=== PATIENT | male | born 1960 | race Two or more races ===

== ENCOUNTER 2016-11-19 22:28 | Inpatient (IN) | payer MEDICAID, OTHER ==
[~2016-11-19] VITALS: Ht 167.6 cm; Wt 94.8 kg
[2016-11-19 22:34] VITALS: BP 131/60
[2016-11-19] MEDS ORDERED: DITROPAN10 MG ORAL (22:40)
[2016-11-19] MEDS ORDERED: METFORMIN HCL500 M4 ORAL (22:40)
[2016-11-19] MEDS ORDERED: RISPERDAL0.25 MG ORAL (22:40)
[2016-11-19] MEDS ORDERED: Haloperidol 5mg/ml Inj IM ONE (23:00)
[2016-11-19] MEDS ORDERED: LORazepam Inj 2mg/ml 1ml IM ONE (23:00)
[2016-11-19 23:01] VITALS: BP 131/60
[2016-11-19 23:16] VITALS: BP 128/62
[2016-11-19 23:31] VITALS: BP 130/68
[2016-11-19 23:46] VITALS: BP 135/78
[2016-11-20] VITALS (14 sets, daily range): BP systolic 121–141; BP diastolic 68–93
--- NOTE | 2016-11-20 00:46 | Emergency Room Report ---
History of Present Illness General Chief Complaint: Behavioral Complaint Source: Family Member, EMS (Farhan Carvajal) Present Illness HPI Patient is a 48-year-old male presented after having increased agitation. Patient was noted to be off of his psychiatric medication for several days. Patient had been previously taking Risperdal. Patient had not been recently hospitalized. The patient was noted to have the also prior history of urinary disease and had been taking oxybutynin. Patient had been noted to be agitated and had been more violent toward family members. (Farhan Carvajal) Allergies: Coded Allergies: No Known Allergies (Unverified , 11/19/16) Patient History Past Medical History: see triage record Reviewed Nursing Documentation: PMH: Agreed, PSxH: Agreed (Farhan Carvajal) Nursing Documentation-PMH Hx Diabetes: Yes History Of Psychiatric Problem: Yes (Farhan Carvajal) Review of Systems All Other Systems: limited - by agitation and poor cooperation (Farhan Carvajal) Physical Exam Vital Signs Date Time Temp Pulse Resp B/P Pulse Ox O2 Delivery O2 Flow Rate FiO2 11/19/16 22:24 Room Air 11/19/16 22:34 98.2 120 24 131/60 95 Sp02 EP Interpretation: reviewed, normal General Appearance: alert/responsive, no apparent distress, GCS 15, non-toxic Head: atraumatic Eyes: PERRL, lids + conjunctiva normal ENT: hearing intact, no angioedema Neck: supple/symm/no masses, no meningismus Respiratory: effort normal, no wheezing, chest symmetrical Cardiovascular: regular rate, rhythm, no edema Cardiovascular #2: 2+ carotid (R), 2+ carotid (L), 2+ dorsalis pedis (R), 2+ dorsalis pedis (L) Gastrointestinal: non-tender, no mass, non-distended, no rebound/guarding, normal bowel sounds Musculoskeletal: strength & tone normal, non-tender, other - limited ROM, nonambulatory per family Neurologic: sensory intact Psychiatric: anxious, other - agitated Skin: no rash, well hydrated Lymphatic: normal inspection (Farhan Carvajal) Medical Decision Making Diagnostic Impression: Primary Impression: Psychosis Additional Impressions: Cerebral palsy Sinusitis, acute maxillary ER Course Patient presented for psychosis. Differential diagnoses include substance abuse , psychosis, bipolar disorder, depression, malingering Because of complexity of patient's case laboratory testing and imaging studies were ordered. The patient was placed in leather restraints for markedly agitation he is noted be kicking at staff. Patient was given a sedative medications. The patient was noted to have improvement in agitation after medications. Patient was given IV Rocephin for sinusitis.Patient is medically cleared for psychiatric referral. Laboratory Tests Test 11/20/16 01:22 White Blood Count 13.6 K/UL (4.8-10.8) H Red Blood Count 5.11 M/UL (4.70-6.10) Hemoglobin 15.5 G/DL (14.2-18.0) Hematocrit 45.3 % (42.0-52.0) Mean Corpuscular Volume 89 FL (80-99) Mean Corpuscular Hemoglobin 30.4 PG (27.0-31.0) Mean Corpuscular Hemoglobin Concent 34.3 G/DL (32.0-36.0) Red Cell Distribution Width 12.4 % (11.6-14.8) Platelet Count 353 K/UL (150-450) Mean Platelet Volume 6.8 FL (6.5-10.1) Neutrophils (%) (Auto) 80.7 % (45.0-75.0) H Lymphocytes (%) (Auto) 11.5 % (20.0-45.0) L Monocytes (%) (Auto) 6.8 % (1.0-10.0) Eosinophils (%) (Auto) 0.3 % (0.0-3.0) Basophils (%) (Auto) 0.7 % (0.0-2.0) Sodium Level 138 mEQ/L (135-145) Potassium Level 4.0 mEQ/L (3.4-4.9) Chloride Level 98 mEQ/L (98-107) Carbon Dioxide Level 24 mEQ/L (20-30) Anion Gap 16 (5-15) H Blood Urea Nitrogen 17 mg/dL (7-23) Creatinine 1.0 mg/dL (0.7-1.2) Estimate Glomerular Filtration Rate > 60 mL/min (>60) Glucose Level 112 mg/dL (74-106) H Calcium Level 9.0 mg/dL (8.6-10.2) Total Bilirubin 0.3 mg/dL (0.0-1.2) Aspartate Amino Transferase (AST) 24 U/L (5-40) Alanine Aminotransferase (ALT) 34 U/L (3-41) Alkaline Phosphatase 65 U/L (40-129) Total Protein 7.3 g/dL (6.6-8.7) Albumin 4.1 g/dL (3.5-5.2) Globulin 3.2 g/dL Albumin/Globulin Ratio 1.2 (1.0-2.7) Salicylates Level < 1 mg/dL (10-30) L Urine Opiates Screen Negative (NEGATIVE) Acetaminophen Level < 10 ug/mL (10-30) L Urine Barbiturates Screen Negative (NEGATIVE) Phencyclidine (PCP) Screen Negative (NEGATIVE) Urine Amphetamines Screen Negative (NEGATIVE) Urine Benzodiazepines Screen Negative (NEGATIVE) Urine Cocaine Screen Negative (NEGATIVE) Urine Marijuana (THC) Screen Negative (NEGATIVE) Serum Alcohol < 10 mg/dL (Farhan Carvajal) ER Course Patient with medical problems and we are unable to place. Dr. Combs would not accept the patient. Admit med with sitter Dr. Huerta. (Mc Alicea M.D.) ER Course Received signout from Dr Carvajal at 630am Patient required additional sedation in morning - was repeatedly screaming and attacking staff We tried throughout the day to place patient in psychiatric facility but I was told by cupola charger Angela that all places refused patient because of patient's cerebral palsy We also tried to admit patient for failure to thrive - [facility] requested transfer to [facility]. I spoke to Dr Auguste who also refused patient because of underlying psych issues. At this point because we were unable to place in Psych facility and unable to admit/transfer to [place] community per his insurance, we decided to admit patient here. I endorsed to Dr Alicea at 3pm to followup admission to Hospitalist here. (BREA DUNLAP M.D.) Last Vital Signs Date Time Temp Pulse Resp B/P Pulse Ox O2 Delivery O2 Flow Rate FiO2 11/19/16 23:01 120 24 95 Room Air 11/19/16 22:34 98.2 131/60 Status: unchanged (Farhan Carvajal) Last Vital Signs Date Time Temp Pulse Resp B/P Pulse Ox O2 Delivery O2 Flow Rate FiO2 11/20/16 18:46 98.0 102 18 129/81 99 Room Air Status: improved (Mc Alicea M.D.) Disposition: ADMITTED INPATIENT Condition: Serious Farhan Carvajal Nov 20, 2016 00:46 Mc Alicea M.D. Nov 20, 2016 19:18 BREA DUNLAP M.D. Nov 21, 2016 06:39
[2016-11-20] MEDS ORDERED: DiphenhydrAMINE 50mg/ml Inj IM ONE ×3 (01:00→18:45)
[2016-11-20 01:33] LABS: BASOPHILS % (AUTO) 0.7 % (0.0-2.0); EOSINOPHILS % (AUTO) 0.3 % (0.0-3.0); LYMPHOCYTES % (AUTO) 11.5 % (20.0-45.0); MEAN CORPUSCULAR HEMOGLOBIN 30.4 PG (27.0-31.0); MEAN CORPUSCULAR HGB CONC 34.3 G/DL (32.0-36.0); MEAN CORPUSCULAR VOLUME 89 FL (80-99); MEAN PLATELET VOLUME 6.8 FL (6.5-10.1); MONOCYTES % (AUTO) 6.8 % (1.0-10.0); NEUTROPHILS % (AUTO) 80.7 % (45.0-75.0); PLATELET COUNT 353 K/UL (150-450); RED BLOOD COUNT 5.11 M/UL (4.70-6.10); RED CELL DISTRIBUTION WIDTH 12.4 % (11.6-14.8); WHITE BLOOD COUNT 13.6 K/UL (4.8-10.8)
[2016-11-20 01:49] LABS: ACETAMINOPHEN < 10 ug/mL (10-30); ALANINE AMINOTRANSFERASE 34 U/L (3-41); ALBUMIN/GLOBULIN RATIO 1.2 (1.0-2.7); ALCOHOL < 10 mg/dL; ANION GAP 16 (5-15); ASPARTATE AMINO TRANSFERASE 24 U/L (5-40); CARBON DIOXIDE 24 mEQ/L (20-30); CHLORIDE 98 mEQ/L (98-107); GLOMERULAR FILTRATION RATE > 60 mL/min (>60); HEMOLYSIS 14; SODIUM 138 mEQ/L (135-145); TOTAL PROTEIN 7.3 g/dL (6.6-8.7)
[2016-11-20] MEDS ORDERED: cefTRIAXone 2 GM in NS 110 ML IVPB ONE (02:30)
[2016-11-20] MEDS ORDERED: Haloperidol 5mg/ml Inj IM ONE ×2 (08:15→16:45)
[2016-11-20] MEDS ORDERED: LORazepam Inj 2mg/ml 1ml IM ONE ×3 (08:15→18:45)
--- NOTE | 2016-11-20 09:27 | Diagnostic Imaging Report ---
Indication: Abdominal pain Technique: Continuous helical transaxial imaging of the abdomen and pelvis was obtained from the lung bases to the pubic symphysis. No intravenous contrast was administered. Coronal 2-D reformats were also obtained. Total Dose length Product (DLP): [address] Dose Index Volume (CTDIvol): 20 mGy Comparison: none Findings: There is artifact based on the presence of the patient's arm over the right side of abdomen. This was unavoidable. There is no nephrolithiasis or hydronephrosis. Some arterial vascular calcifications are noted throughout. The lung bases are clear. A technical error was made. The upper part of the liver was not scanned on this exam. There is a small hiatal hernia. Normal appendix is demonstrated. No free fluid or free air identified. Moderate diverticulosis of the sigmoid colon demonstrated. There is a small umbilical hernia containing fat. No free fluid or free air identified. Impression: No acute findings identified. Diverticulosis of the colon. No definite diverticulitis. Normal appendix Mild atherosclerotic vascular disease Small bowel and Suboptimal exam. Incomplete demonstration of the upper part of the liver as discussed above. [facility] has communicated the preliminary results to the Emergency Department. Their findings are largely concordant with this report. The CT scanner at [facility] is accredited by the [employer] and the scans are performed using protocols designed to limit radiation exposure to as low as reasonably achievable to attain images of sufficient resolution adequate for diagnostic evaluation.
--- NOTE | 2016-11-20 11:07 | Diagnostic Imaging Report ---
Indication: Altered mental status Technique: Contiguous 5 mm thick transaxial imaging of the head obtained in a Siemens Sensation [address] scanner. Soft tissue and bone windows generated. Total Dose length Product (DLP): [address] Dose Index Volume (CTDIvol): 70.38 mGy Comparison: none Findings: There is mild prominence of the ventricles, basal cisterns, and cerebral sulci consistent with atrophy. Mild, nonspecific, white matter hypoattenuation is noted throughout the brain consistent with chronic small vessel disease. There is no midline shift, edema, acute hemorrhage, mass effect, or abnormal extra-axial fluid collections. Bones and extra osseous soft tissues are unremarkable. There is mucosal thickening in the right maxillary sinus consistent with sinusitis. Impression: No acute intracranial bleed, mass effect or edema. Mild atrophy of the brain. Nonspecific white matter hypoattenuation probably due to chronic small vessel disease. Right maxillary sinusitis The CT scanner at [facility] is accredited by the [employer] and the scans are performed using protocols designed to limit radiation exposure to as low as reasonably achievable to attain images of sufficient resolution adequate for diagnostic evaluation.
[2016-11-20 18:46] LABS: APPEARANCE,URINE CLEAR; KETONES,URINE 3+ (NEGATIVE); LEUKOCYTE ESTERASE ,URINE 1+ (NEGATIVE); NITRITE,URINE POSITIVE (NEGATIVE); PH,URINE 5 (4.5-8.0); PROTEIN,URINE 2+ (NEGATIVE); UROBILINOGEN,URINE NORMAL MG/DL (0.0-1.0)
[2016-11-20 18:59] LABS: BACTERIA,URINE FEW /HPF; CALCIUM OXALATE CRYSTALS,UR FEW /LPF
[2016-11-20] MEDS ORDERED: DiphenhydrAMINE 50mg/ml Inj IM PRN (20:00)
[2016-11-20] MEDS ORDERED: Haloperidol 5mg/ml Inj IM PRN (20:00)
[2016-11-20] MEDS ORDERED: RisperiDONE 0.25mg tab ORAL ONE (21:00)
[2016-11-20] MEDS: NovoLOG Insulin Flexpen SUBQ SCH (21:42)
[2016-11-21] VITALS: BP 138/65
[2016-11-21 04:00] VITALS: BP 128/88
[2016-11-21] MEDS: LORazepam Inj 2mg/ml 1ml IM PRN ×3 (05:43→15:53)
[2016-11-21] MEDS: NovoLOG Insulin Flexpen SUBQ SCH ×4 (06:07→21:00)
[2016-11-21 07:10] LABS: EOSINOPHILS % (AUTO) 2.4 % (0.0-3.0); LYMPHOCYTES % (AUTO) 37.6 % (20.0-45.0); MEAN CORPUSCULAR HEMOGLOBIN 30.1 PG (27.0-31.0); MEAN CORPUSCULAR HGB CONC 33.7 G/DL (32.0-36.0); MEAN CORPUSCULAR VOLUME 89 FL (80-99); MEAN PLATELET VOLUME 6.2 FL (6.5-10.1); MONOCYTES % (AUTO) 11.2 % (1.0-10.0); NEUTROPHILS % (AUTO) 47.8 % (45.0-75.0); PLATELET COUNT 338 K/UL (150-450); RED BLOOD COUNT 5.03 M/UL (4.70-6.10); RED CELL DISTRIBUTION WIDTH 12.2 % (11.6-14.8); WHITE BLOOD COUNT 8.8 K/UL (4.8-10.8)
[2016-11-21 07:25] LABS: ALANINE AMINOTRANSFERASE 37 U/L (3-41); ALBUMIN/GLOBULIN RATIO 1.2 (1.0-2.7); ANION GAP 17 (5-15); ASPARTATE AMINO TRANSFERASE 67 U/L (5-40); CALCIUM 9.2 mg/dL (8.6-10.2); CARBON DIOXIDE 26 mEQ/L (20-30); CHLORIDE 99 mEQ/L (98-107); CREATININE 0.9 mg/dL (0.7-1.2); GLOMERULAR FILTRATION RATE > 60 mL/min (>60); HEMOLYSIS 8; MAGNESIUM 2.2 mg/dL (1.7-2.5); POTASSIUM 3.7 mEQ/L (3.4-4.9); SODIUM 142 mEQ/L (135-145)
[2016-11-21 07:32] VITALS: BP 140/83
[2016-11-21 08:35] LABS: TROPONIN I < 0.30 ng/mL (<=0.30)
[2016-11-21] MEDS: metFORMIN 500mg tab ORAL SCH (08:41)
[2016-11-21] MEDS: Heparin 5000 units/ml inj SUBQ SCH ×2 (08:48→21:00)
[2016-11-21] MEDS ORDERED: RisperiDONE 0.25mg tab ORAL SCH (09:00)
[2016-11-21 11:32] VITALS: BP 128/92
[2016-11-21] MEDS ORDERED: Haloperidol 5mg/ml Inj IM PRN (13:00)
[2016-11-21 16:00] VITALS: BP 131/93
--- NOTE | 2016-11-21 17:18 | Consultation ---
DATE OF CONSULTATION: HISTORY OF PRESENT ILLNESS: This is a 56-year-old male with a history of developmental disability and depression, who has been admitted to the hospital due to increased agitation. The patient has been prescribed multiple medications including risperidone. During the evaluation, he was a poor historian, was agitated, and although I am familiar with his nabil language, he was unable to be engaged and he was very disorganized. Therefore, I gathered history through his brother. According to the brother, he has been diagnosed with development disability and has a history of anxiety and agitation. The patient has been recently going through multiple psychosocial stressors including his , who also has a mental disability, started being physically more sick and disabled. The patient also has two children and due to his mental disabilities, he has difficulty raising the kids and he feels more stressed out. Per brother, the patient has been also sexually more frustrated with his . He is unable to have sexual relationship with the patient due to her medical issues. According to brother, the patient has been becoming more agitated for not having sex with his . The patient did not endorse any suicidal or homicidal ideation while I was evaluating him, however, he has expressed to his family that he does not want to continue his life as it is very stressful. He has not expressed any suicidal or homicidal ideations to his family. PAST MEDICAL HISTORY: Includes Osuna's palsy, obesity, and failure to thrive. ALLERGIES: No known drug allergies. SUBSTANCE ABUSE HISTORY: No history of illicit drug use or alcohol. SOCIAL HISTORY: The patient is . He has two children and family is supporting the patient. MENTAL STATUS EXAMINATION: Alert and oriented times self. Mood is anxious and agitated. Affect is congruent with mood and is appropriate. Thought process is disorganized. Thought content, no suicidal or homicidal ideation. No auditory or visual hallucinations. Cognition is impaired. ASSESSMENT: Dexter I Mood disorder, no other specified. Dexter II Developmental disability. Dexter III Diabetes mellitus and Osuna's palsy. Dexter IV Low. Dexter V Global assessment of functioning is 25. PLAN: 1. We will discontinue the risperidone. As per his brother, it has been ineffective. 2. Will start the patient on fluoxetine 20 mg in the morning, which is going to help with the mood lability and agitation. 3. We will start the patient on mirtazapine 50 mg at bedtime. 4. We will decrease the lorazepam to 2 mg every six hours IM. 5. We will increase the Haldol to 5 mg every four hours p.r.n. for anxiety and agitation. 6. Discussed the case with the brother, Marques Elmore. Hilary Lamar M.D. DR: CHRISTOPHER JOB#: [id number] CC:
[2016-11-21] MEDS: Oxybutynin 5mg tab ORAL SCH (17:23)
[2016-11-21] MEDS ORDERED: Milk of Magnesia 30ml Ud ORAL PRN (18:45)
[2016-11-21 19:00] VITALS: BP 128/86
[2016-11-21] MEDS: Tamsulosin 0.4mg cap ORAL SCH (21:26)
--- NOTE | 2016-11-21 21:28 | History and Physical Report ---
DATE OF ADMISSION: 11/20/2016 CHIEF COMPLAINT: Acute encephalopathy, psychosis, and agitation. HISTORY OF PRESENT ILLNESS: The patient is a 56-year-old male. He has a history of cerebral palsy and borderline diabetes. He was brought in by family members with complaints of a combative and aggressive behavior. Apparently, symptoms started several months ago. He has been off and on Risperdal, but behavior is good. According to the patient's family, he has become increasingly agitated, depressed, combative, and confused. According to the family members, they feel that this is due to multiple reasons. He is currently weaker and now is unable to ambulate. He has been incontinent. His has apparently been ill. According to the family members, he is upset that he has been unable to have intercourse with her. Because of all these issues, the patient is becoming increasingly depressed and agitated. He has been noncompliant with his medications. The family eventually brought him in because of continued behavioral issues. The workup in the emergency room was unremarkable. Attempts to transfer the patient to the psychiatric facility were unsuccessful and he was therefore admitted here. Currently, the patient is agitated. PAST MEDICAL HISTORY: As above. PAST SURGICAL HISTORY: None. CURRENT MEDICATIONS: Reconciled and reviewed. ALLERGIES: None. FAMILY HISTORY: Unknown. SOCIAL HISTORY: There is no known history of tobacco, ethanol, or drugs. REVIEW OF SYSTEMS: Unobtainable, as the patient is uncooperative. PHYSICAL EXAMINATION: GENERAL: The patient is awake, alert, does follow simple commands. HEART: Regular. LUNGS: Clear. EXTREMITIES: Without clubbing or cyanosis. SKIN: The patient has a rash on the right upper extremity. LABORATORY DATA: White count 14, hemoglobin 15, hematocrit 45, and platelets 353,000. Sodium 138, potassium 4, and creatinine was 1. Troponin 0.03. UA with 0 to 4 WBCs. Urine tox screen was negative. CT scan of the head was negative as well as CT scan of the abdomen. ASSESSMENT: This is a 56-year-old male with a history of cerebral palsy admitted because of agitation secondary to possible depression or psychosis. PROBLEM LIST: 1. Cerebral palsy. 2. Incontinence, suspect secondary to prostate problems. 3. Agitation, psychosis, and depression. PLAN: 1. Check a bladder scan. We will start the patient on Flomax. 2. Psychiatric consultation has been obtained. The patient is medically stable for psych transfer if a bed is found and accepted to the facility. Terry Huerta M.D. DR: ERNIE JOB#: [id number] CC:
[2016-11-22] VITALS (7 sets, daily range): BP systolic 109–140; BP diastolic 66–85
[2016-11-22] MEDS: LORazepam Inj 2mg/ml 1ml IM PRN ×3 (00:34→15:54)
[2016-11-22] MEDS: NovoLOG Insulin Flexpen SUBQ SCH ×4 (06:30→21:33)
[2016-11-22] MEDS: metFORMIN 500mg tab ORAL SCH (08:54)
[2016-11-22] MEDS: Oxybutynin 5mg tab ORAL SCH ×2 (08:55→19:03)
[2016-11-22] MEDS: Heparin 5000 units/ml inj SUBQ SCH ×2 (08:55→20:20)
--- NOTE | 2016-11-22 17:50 | General Progress Note ---
Assessment/Plan Problem List: (1) Cerebral palsy ICD Codes: G80.9 - Cerebral palsy, unspecified SNOMED: 858586689 (2) Incontinence ICD Codes: R32 - Unspecified urinary incontinence SNOMED: 65730954 (3) Failure to thrive SNOMED: 45151616 Status: stable Assessment/Plan no new recs psych rx added flomax- no pvr though Subjective ROS Limited/Unobtainable: Yes Constitutional: Reports: no symptoms HEENT: Reports: no symptoms Cardiovascular: Reports: no symptoms Respiratory: Reports: no symptoms Gastrointestinal/Abdominal: Reports: no symptoms Genitourinary: Reports: incontinence Neurologic/Psychiatric: Reports: no symptoms Endocrine: Reports: no symptoms Allergies: Coded Allergies: No Known Allergies (Unverified , 11/19/16) All Systems: reviewed and negative except above Subjective remains agitated and combative. confused. Objective Last 24 Hour Vital Signs Date Time Temp Pulse Resp B/P Pulse Ox O2 Delivery O2 Flow Rate FiO2 11/22/16 16:00 97.7 99 19 127/85 93 Room Air 11/22/16 12:08 98.4 62 20 140/66 95 Room Air 11/22/16 08:03 97.9 95 20 137/80 93 Room Air 11/22/16 04:00 97.5 99 20 109/69 100 Room Air 11/22/16 00:00 98.1 114 22 109/70 90 Room Air 11/21/16 19:00 97.3 97 20 128/86 98 Room Air Intake and Output 11/21/16 11/22/16 19:00 07:00 Intake Total 800 ml 590 ml Output Total 325 ml Balance 800 ml 265 ml Intake Oral 800 ml 590 ml Output Urine Total 325 ml # Voids 2 5 Height (Feet): 5 Height (Inches): 6.00 Weight (Pounds): 209 General Appearance: WD/WN, confused Neck: supple Cardiovascular: regular rhythm Respiratory/Chest: lungs clear Abdomen: normal bowel sounds, non tender, soft Edema: no edema noted Arm (L), no edema noted Arm (R), no edema noted Leg (L), no edema noted Leg (R), no edema noted Pedal (L), no edema noted Pedal (R), no edema noted Generalized ASHU VILLANUEVA Nov 22, 2016 17:50
[2016-11-22] MEDS: Docusate 250mg cap ORAL SCH (19:03)
[2016-11-22] MEDS: Tamsulosin 0.4mg cap ORAL SCH (21:33)
[2016-11-23] VITALS: BP 139/97
[2016-11-23 04:00] VITALS: BP 113/76
[2016-11-23] MEDS: NovoLOG Insulin Flexpen SUBQ SCH ×4 (06:30→20:16)
[2016-11-23] MEDS: Docusate 250mg cap ORAL SCH ×2 (08:30→17:39)
[2016-11-23] MEDS: metFORMIN 500mg tab ORAL SCH (08:30)
[2016-11-23] MEDS: Oxybutynin 5mg tab ORAL SCH (08:30)
[2016-11-23 08:31] VITALS: BP 126/76
[2016-11-23] MEDS: Heparin 5000 units/ml inj SUBQ SCH ×2 (08:31→20:17)
--- NOTE | 2016-11-23 09:59 | General Progress Note ---
Assessment/Plan Problem List: (1) Cerebral palsy ICD Codes: G80.9 - Cerebral palsy, unspecified SNOMED: 312069391 (2) Incontinence ICD Codes: R32 - Unspecified urinary incontinence SNOMED: 62461455 (3) Failure to thrive SNOMED: 71274944 Status: stable, progressing Assessment/Plan no new recs psych rx added flomax- no pvr though dc oxybutinin- ?helping Subjective ROS Limited/Unobtainable: Yes Constitutional: Reports: malaise, weakness HEENT: Reports: no symptoms Cardiovascular: Reports: no symptoms Respiratory: Reports: no symptoms Gastrointestinal/Abdominal: Reports: no symptoms Genitourinary: Reports: no symptoms Neurologic/Psychiatric: Reports: anxiety, emotional problems Endocrine: Reports: no symptoms Hematologic/Lymphatic: Reports: no symptoms Allergies: Coded Allergies: No Known Allergies (Unverified , 11/19/16) All Systems: reviewed and negative except above Subjective remains agitated and combative. confused. Objective Last 24 Hour Vital Signs Date Time Temp Pulse Resp B/P Pulse Ox O2 Delivery O2 Flow Rate FiO2 11/23/16 08:31 97.0 76 16 126/76 95 Room Air 11/23/16 04:00 97.0 81 20 113/76 94 Room Air 11/23/16 00:00 97.9 95 20 139/97 96 Room Air 11/22/16 20:00 97.5 107 17 132/80 94 Room Air 11/22/16 16:00 97.7 99 19 127/85 93 Room Air 11/22/16 12:08 98.4 62 20 140/66 95 Room Air Intake and Output 11/22/16 11/23/16 19:00 07:00 Intake Total 480 ml 360 ml Balance 480 ml 360 ml Intake Oral 480 ml 360 ml # Voids 3 2 # Bowel Movements 4 Height (Feet): 5 Height (Inches): 6.00 Weight (Pounds): 209 ASHU VILLANUEVA Nov 23, 2016 09:59
[2016-11-23 12:04] VITALS: BP 123/75
[2016-11-23 15:48] VITALS: BP 110/77
[2016-11-23 20:00] VITALS: BP 136/91
[2016-11-23] MEDS: Tamsulosin 0.4mg cap ORAL SCH (20:18)
[2016-11-24] VITALS: BP 134/77
[2016-11-24 04:00] VITALS: BP 123/88
[2016-11-24] MEDS: NovoLOG Insulin Flexpen SUBQ SCH ×4 (06:09→21:14)
[2016-11-24 08:00] VITALS: BP 133/64
[2016-11-24] MEDS: Heparin 5000 units/ml inj SUBQ SCH ×2 (09:00→21:09)
[2016-11-24] MEDS: Docusate 250mg cap ORAL SCH ×2 (09:21→17:29)
[2016-11-24] MEDS: metFORMIN 500mg tab ORAL SCH (09:21)
[2016-11-24 12:00] VITALS: BP 127/78
--- NOTE | 2016-11-24 13:02 | General Progress Note ---
Assessment/Plan Problem List: (1) Cerebral palsy ICD Codes: G80.9 - Cerebral palsy, unspecified SNOMED: 151108848 (2) Incontinence ICD Codes: R32 - Unspecified urinary incontinence SNOMED: 46142904 (3) Failure to thrive SNOMED: 25245060 Status: stable, progressing Assessment/Plan psych rx no new med recs dc planning Subjective ROS Limited/Unobtainable: Yes Constitutional: Reports: no symptoms HEENT: Reports: no symptoms Cardiovascular: Reports: no symptoms Respiratory: Reports: no symptoms Gastrointestinal/Abdominal: Reports: no symptoms Genitourinary: Reports: incontinence Neurologic/Psychiatric: Reports: pre-existing deficit Endocrine: Reports: no symptoms Hematologic/Lymphatic: Reports: no symptoms Allergies: Coded Allergies: No Known Allergies (Unverified , 11/19/16) All Systems: reviewed and negative except above Subjective more cooperative. d/w family Objective Last 24 Hour Vital Signs Date Time Temp Pulse Resp B/P Pulse Ox O2 Delivery O2 Flow Rate FiO2 11/24/16 08:00 98.1 89 22 133/64 96 Room Air 11/24/16 04:00 98.0 85 20 123/88 95 Room Air 11/24/16 00:00 99.3 102 20 134/77 96 Room Air 11/23/16 20:00 97.8 105 20 136/91 95 Room Air 11/23/16 15:48 98.2 96 15 110/77 95 Room Air Intake and Output 11/23/16 11/24/16 19:00 07:00 Intake Total 1200 ml 1320 ml Output Total 280 ml Balance 1200 ml 1040 ml Intake Oral 1200 ml 1320 ml Output Urine Total 280 ml # Voids 7 2 # Bowel Movements 8 Height (Feet): 5 Height (Inches): 6.00 Weight (Pounds): 209 General Appearance: WD/WN Neck: supple Cardiovascular: regular rhythm Respiratory/Chest: lungs clear Abdomen: soft Edema: no edema noted Arm (L), no edema noted Arm (R), no edema noted Leg (L), no edema noted Leg (R), no edema noted Pedal (L), no edema noted Pedal (R), no edema noted Generalized ASHU VILLANUEVA Nov 24, 2016 13:02
[2016-11-24 19:32] VITALS: BP 131/83
[2016-11-24] MEDS: Tamsulosin 0.4mg cap ORAL SCH (21:08)
[2016-11-24 23:25] VITALS: BP 142/83
[2016-11-25 04:00] VITALS: BP 113/82
[2016-11-25] MEDS: NovoLOG Insulin Flexpen SUBQ SCH ×3 (06:30→16:30)
[2016-11-25] MEDS: Docusate 250mg cap ORAL SCH (07:51)
[2016-11-25] MEDS: metFORMIN 500mg tab ORAL SCH (07:51)
[2016-11-25 07:54] VITALS: BP 147/79
[2016-11-25] MEDS: Heparin 5000 units/ml inj SUBQ SCH (07:54)
[2016-11-25 11:22] VITALS: BP 113/81
[2016-11-25] MEDS ORDERED: FLUOXETINE HCL20 MG ORAL (13:15)
[2016-11-25] MEDS ORDERED: FLOMAX0.4 MG ORAL (13:15)
[2016-11-25] MEDS ORDERED: MIRTAZAPINE15 M3 ORAL (13:15)
[2016-11-25] MEDS ORDERED: GLUCOPHAGE500 MG ORAL (13:15)
--- NOTE | 2016-11-26 00:18 | Discharge Summary ---
DATE OF ADMISSION: 11/20/2016 DATE OF DISCHARGE: 11/25/2016 CHIEF COMPLAINT: 1. Agitation. 2. Incontinence. HISTORY AND HOSPITAL COURSE: The patient is a 56-year-old male with a history of cerebral palsy who presented with agitation and combative behavior. His medical workup was unremarkable. He had a CT scan of the head as well as abdomen that was negative. The patient has been off his anti-psychiatric medications for several months. A psych consultation was obtained. The patient resumed his medications. He did improve. On discharge, he is doing better. He will be discharged back home with family members. He should followup with his regular doctor in one to two weeks. DISCHARGE MEDICATIONS: Please see discharge medication list for discharge medications. DIET: A regular diet. ACTIVITY: Ad-julia. Terry Huerta M.D. DR: TESHA JOB#: [id number] CC:
== END 2016-11-25 17:27 | disposition home health service (06) | DRG 751 ==
LOC: EDBD 22:28 → EMR 22:57 → 4E 11-20 15:45 → EDBEDREQ 11-20 18:02 → EMR 11-20 19:08 → 4E 11-20 23:42
DX: F29 Unspecified psychosis not due to a substance or known physiological condition (principal); G93.40 Encephalopathy, unspecified; E11.9 Type 2 diabetes mellitus without complications; F39 Unspecified mood [affective] disorder; R62.7 Adult failure to thrive; G80.9 Cerebral palsy, unspecified; J01.00 Acute maxillary sinusitis, unspecified; F32.9 Major depressive disorder, single episode, unspecified; Z91.14 Patient's other noncompliance with medication regimen; R32 Unspecified urinary incontinence
CPT/HCPCS: 36415; 70450; 74176; 80053; 80300; 80329; 81003; 82607; 82962; 83735; 84443; 84484; 85025; 96372; 96374; J1815